=== PATIENT | female | born 1955 | race Caucasian/White ===

== ENCOUNTER → 2017-07-29 | Outpatient (CLI) | payer OTHER ==
[~2017-07-29] MED LIST: CYMBALTA30 MG PO; GRALISE1 EACH PO; GRALISE300 MG PO; GRALISE600 MG PO; IBUPROFEN 800800 M1 PO; LOSARTAN PO; NEURONTIN 300300 M1; SYNTHROID50 MCG PO; TRAMADOL 50 MG50 MG PO; TYLENOL EXTRA500 MG PO; TYLENOL325 MG PO; estradiol PO
--- NOTE | 2017-08-17 08:16 | PAINCON ---
[address] [address] PAIN MANAGEMENT CONSULTATION Name: GALLEGOSZION S Room: [facility]#: [id number] Admission: 07/29/17 Attend Phys: Afua Marie MD Discharge: Date of : 51 Report #: [id number] THIS REPORT FOR: //name// CC: Zion Hsu DATE OF SERVICE: 07/29/2017 CHIEF COMPLAINT: Low back pain down into the hips and feet. HISTORY OF PRESENT ILLNESS: The patient is a 62-year-old female who has been referred to the pain clinic for evaluation of back, hip and foot pain. The patient has been told that she has arthritis, which is problematic in her back and hips. She also has noted some arthritis in her feet with some foot stiffness. She has been using gabapentin. Cymbalta caused some mental cloudiness. Rates her pain as a 4/10. She has been having pain in her feet since the and back pain since the . Pain is made worse when she is standing and that exacerbates her back pain. Walking worsens the pain that she notes in her feet. She notes that sitting is beneficial. Describes as continuous, steady, constant, burning on the top of her big toe and around the cuticle as well as some aching in the back area, throbbing in her feet. Back pain is judged at 4/10. Foot pain is judged as 4/10. Both can rise to the level of 9 when the pain is really problematic. She has used tramadol in the past. She has used ibuprofen p.r.n. She has had an MRI that revealed mild left-sided epidural stenosis at L5-S1. ALLERGIES: No known drug allergies. MEDICATIONS: Tylenol Extra Strength 500 mg 2 tablets every 4-6 hours p.r.n., Cymbalta 30 mg daily, gabapentin/Gralise, ibuprofen 800 mg q. 6 hours p.r.n., Levothyroxine 50 mcg, tramadol 50 mg t.i.d., estradiol 0.5 mg, and losartan 100 mg. Medications used in the past are nortriptyline 10 mg nightly for fibromyalgia. Fenofibrate in the past for hypercholesterolemia. PAST MEDICAL HISTORY: Gallbladder disease, thyroid disease, joint disease/arthritis, B12 deficiency, fibromyalgia, hypertension, and hypothyroidism. PAST SURGICAL HISTORY: Appendectomy 1966, breast surgery implant, cholecystectomy 1980, colonoscopy 2007, hysterectomy with bilateral salpingo-oophorectomy 1982, ruptured appendix, breast augmentation in 1980, laparotomy 1974, seizure 2004, and 2 concussions approximately 1997. 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 She is working part-time at this juncture. 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 [address] PAIN MANAGEMENT CONSULTATION Name: GALLEGOSZION YEAGER Room: [facility]#: [id number] Admission: 07/29/17 Attend Phys: Afua Marie MD Discharge: Date of : 51 Report #: [id number] FAMILY HISTORY: Mother with Sjogren's syndrome, arthritis, fibromyalgia. Brother HIV. Sister arthritis. Mother is alive. Father at age 23. Sister is alive. Brother . REVIEW OF SYSTEMS: Twelve point generally good health, fatigue, weakness, macular degeneration, wears glasses, palpitations, shortness of breath, swelling of hands and feet, joint pain, joint stiffness, weakness of muscles and joints, muscle pain and cramps, back pain, difficulty walking, seizure. LABORATORY DATA: MRI of the lumbar spine dated 11/07/2015 reveals: 1. L3-L4, foramen intact, mild disk bulging. 2. L4-L5 foramen intact, mild disk bulging. Degenerative hypertrophic facet changes and ligamentum hypertrophy are present. No significant canal narrowing. 3. L5-S1 mild epidural lipomatosis. Moderate degenerative facet changes. Mildly narrowing of the canal, but does not produce stenosis. SI joint appears intact. PAIN CLINIC ASSESSMENT: 1. The patient has some problems with her feet and hand with her feet arthritic changes. 2. Height 5 feet 7 inches, weight 225 pounds, BMI is 35.7. 3. Vital signs: Blood pressure 135/85, heart rate 72, respiratory rate 16, room air saturation 95%, temperature 97.4. Pain score 4/10. 4. Fall risk. The patient has not fallen in the last 3 months. 5. The patient is not on the blood thinner. 6. History of hypertension. The patient is being treated for hypertension. 7. Risk assessment tool. 8. Functional assessment tool. 9. Recreational drug use. The patient denies recreational drug use. 10. Tobacco: Again, the patient denies use of tobacco. The patient denies use of alcoholic beverages. PHYSICAL EXAMINATION: GENERAL: The patient is a well-developed female. She appears her stated age. She is alert and oriented x 3. Affect is appropriate. Speech is fluent. HEENT: Normocephalic, atraumatic. Extraocular eye muscles intact. Mucous membranes moist. Conjunctivae nonicteric. Hearing is within normal limits. NECK: Without adenopathy or bruits. HEART: Regular rate and rhythm. Normal heart sounds without gallop or rub. PULMONARY: Clear to auscultation with normal breath sounds. ABDOMEN: Nontender without organomegaly. BACK: Without significant kyphosis, scoliosis or lordosis. MUSCULOSKELETAL: Upper extremity muscle strength is judged to be 5/5 for the major muscle groups in the upper extremity with some symmetry. Deep tendon reflex +1 for the biceps, difficult to appreciate the triceps and brachioradialis. 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 Forward bending to about [address] [place] [address] PAIN MANAGEMENT CONSULTATION Name: ZION GALLEGOS Room: [facility]#: [id number] Admission: 07/29/17 Attend Phys: Afua Marie MD Discharge: Date of : 51 Report #: [id number] Major muscle groups of the lower extremity is judged to be 5/5 for the major muscle groups with symmetry. The patient has pain and discomfort on the top of the great toe and some discomfort around the cuticle on her left and right foot. She also has some pain and discomfort in the L5 paraspinous muscles as well as some pain that radiates down, but some burning and stabbing sensation in the gluteus aldo areas bilaterally. She has some stabbing pain in her right hand. IMPRESSION: 1. Chronic pain in the low back area. 2. Fibromyalgia. 3. Fatigue. 4. Hypertension. 5. Hypothyroidism. 6. Hyperlipidemia. 7. Vitamin D and B12 deficiency. RECOMMENDATIONS: We discussed treatment options with the patient. At this juncture, she continues to have pain, which is quite problematic. It involves her foot as well as some low back pain and history of fibromyalgia. At this juncture, we will try gabapentin type medication and it is called Grali. She has been given a sample of this medication. She will take it as prescribed in the sample. It will slowly be titrated up to a possible 1800 mg. This medication is the one that lot for folks are able to take because of gentleness of this. When they have not been able to titrate gabapentin, this medication has been helpful for some. I think it would be reasonable for us to give it a try. She will try this medication and call us if she has any problems. We will then evaluate what other options are available. A sample pack for 15 days of medication has been provided. We would like to thank you for letting us participate in her care. We hope she continues to improve. <ELECTRONICALLY SIGNED> By: Afua Marie MD 08/17/17 0816 1244 2003N. En Marie MD /[facility]
== END ==
LOC: M.PC 02:23
DX: I10 Essential (primary) hypertension (principal); E78.5 Hyperlipidemia, unspecified; E03.9 Hypothyroidism, unspecified; M79.7 Fibromyalgia; E53.8 Deficiency of other specified B group vitamins; E55.9 Vitamin D deficiency, unspecified; R53.83 Other fatigue

== ENCOUNTER → 2017-08-12 | Outpatient (CLI) | payer OTHER ==
--- NOTE | 2017-08-17 08:16 | PAINCON ---
[facility] [address] [place] [address] PAIN MANAGEMENT CONSULTATION Name: ZION GALLEGOS Room: [facility].#: [id number] Admission: 08/12/17 Attend Phys: Afua Marie MD Discharge: Date of : 51 Report #: [id number] THIS REPORT FOR: //name// CC: ZION MCBRIDE DO Zion Marie DATE OF SERVICE: 08/12/2017 FOLLOWUP COMPLAINT: "The pain in my foot has improved significantly. FOLLOWUP HISTORY: The patient is a 62-year-old female, who has been seen in the pain clinic because of low back pain as well as pain in her feet. She was given a Gralise/gabapentin script at the last visit. She finds that this medication has been quite helpful. This causing no mental confusion. Overall, she notes that her pain in her feet has improved greater than about 70%. She is able to walk with less pain and discomfort. Has less discomfort with activities of daily living. She still has pain and discomfort in her back. She rates it as a 6/10. She feels that the decrease of tramadol has worsened her pain and discomfort. She feels that 2 tramadol tablets t.i.d. has been quite efficacious in helping with the back pain and would like to resume its use. She also finds that her mood has improved with the start of Cymbalta. Overall, things are going better. She would like to continue titrating the Gralise medication to the higher level to note its efficacy and back pain as well as hope for continued pain in her feet. ALLERGIES: No known drug allergies. MEDICATIONS: Tylenol Extra Strength 500 mg 2 tablets every 4 hours p.r.n., Cymbalta 30 mg daily, gabapentin/Gralise starting 1800 mg daily, ibuprofen 800 mg every 6 hours p.r.n., levothyroxine 50 mcg, tramadol 50 mg t.i.d., estradiol 0.5 mg and losartan 100 mg. Nortriptyline use in the past nightly for fibromyalgia. Fenofibrate in the past for hypercholesterolemia. PAIN CLINIC ASSESSMENT: 1. The patient has some arthritic changes in her feet. 2. Height 5 feet 7 inches, weight 227 pounds, BMI is 37. 3. VITAL SIGNS: Blood pressure 140/75, pulse is 80, respiratory rate 16, room air saturation is 94%, temperature 98 degrees. 4. Pain intensity 6/10, 70% improvement in foot pain. 5. Fall risk. The patient has not fallen in the last 3 months. 6. Blood thinner. The patient is not on a blood thinner. 7. History of hypertension. The patient is being treated for hypertension. 8. Opioids greater than 6 weeks. The patient is not on opioid, but is taking tramadol. 9. [place] [address] PAIN MANAGEMENT CONSULTATION Name: ZION GALLEGOS Room: [facility]#: [id number] Admission: 08/12/17 Attend Phys: Afua Marie MD Discharge: Date of : 53 Report #: [id number] 10. Risk assessment tool. 11. Recreational drug use. The patient denies use of recreational drugs. 12. Tobacco, the patient denies use of tobacco. 13. Alcohol. The patient denies use of alcohol. PHYSICAL EXAMINATION: GENERAL: The patient is a well-developed white female. She appears her stated age. She is alert and oriented x 3. Her affect is appropriate. Speech is fluent. HEENT: Normocephalic, atraumatic. Extraocular eye muscles intact. Mucous membranes moist, conjunctiva nonicteric. Hearing is within normal limits. NECK: Without adenopathy or bruits. HEART: Regular rate and rhythm. Normal heart sounds without gallop. PULMONARY: Clear to auscultation without rhonchi or wheezing. ABDOMEN: Protuberant. BACK: Without significant kyphosis, scoliosis or lordosis. MUSCULOSKELETAL: Upper extremity strength is judged to be 5/5 for the major muscle groups in the upper extremity with symmetry. Deep tendon reflexes +1 for the biceps. LOWER EXTREMITIES: The patient complains of pain and discomfort in the lower portion of her back with pain that radiates down into the legs in the posterior area bilaterally/muscle strength is judged to be 5/5 for the major muscle groups. FEET: The patient has noted improvement in her feet. Less pain in the great toe. Less discomfort around the area of her cuticles on her right foot. Continues to have some paraspinous muscles soreness with radiation down into the gluteus area bilaterally. IMPRESSION: 1. Chronic pain in the low back. 2. Chronic foot pain. 3. Fibromyalgia. 4. Fatigue. 5. Hypertension. 6. Hypothyroidism. 7. Hyperlipidemia. 8. Vitamin D and B12 deficiency. RECOMMENDATIONS: We discussed treatment options with the patient. She feels that the Gralise has been quite helpful in her pain in her foot. Overall, things are continuing to improve in that area. Still has some pain and discomfort in her back. She is not sure that the Gralise has made a significant inroad into that pain. She feels that the start of the Cymbalta has been helpful. She feels that her mood has lightened. She does not have any problems with mentation. No problems with side effects from her current medical regimen. She feels that tramadol 50 mg 2 tablets t.i.d. [place] [address] PAIN MANAGEMENT CONSULTATION Name: ZION GALLEGOS Room: [facility]#: [id number] Admission: 08/12/17 Attend Phys: Afua Marie MD Discharge: Date of : 51 Report #: [id number] helping her pain control. She would like to continue with these medications. She has asked that we continue to write for medications of Cymbalta, tramadol and the Gralise, which we will. She will call us if she has any problems with her medications. A script for the Gralise 1800 mg per day has been written. We would like to thank you for letting us participate in her care. We hope she continues to improve. <ELECTRONICALLY SIGNED> By: Afua Marie MD 08/17/17 0816 1402 2018N. En Marie MD /nt
== END ==
LOC: M.PC 03:26
DX: M54.5 Low back pain (principal); G89.29 Other chronic pain; M79.671 Pain in right foot; M79.7 Fibromyalgia; R53.83 Other fatigue; I10 Essential (primary) hypertension; E03.9 Hypothyroidism, unspecified; E78.5 Hyperlipidemia, unspecified; E53.0 Riboflavin deficiency; E55.9 Vitamin D deficiency, unspecified

== ENCOUNTER → 2017-09-09 | Outpatient (CLI) | payer OTHER ==
--- NOTE | 2017-10-06 13:42 | PAINCON ---
[address] [address] PAIN MANAGEMENT CONSULTATION Name: ZION GALLEGOS Room: [facility].#: [id number] Admission: 09/09/17 Attend Phys: Afua Marie MD Discharge: Date of : 51 Report #: [id number] THIS REPORT FOR: //name// CC: Zion Hsu DATE OF SERVICE: 09/09/2017 FOLLOWUP COMPLAINT: Low back pain, feels like Gralise/gabapentin is helpful, but it does make me feel a little bit dizzy. FOLLOWUP HISTORY: The patient is a 62-year-old female who has had a history of chronic foot pain. As you recall, she has a significant problem with her feet. She found that the Gralise has been helpful. She does feel that maybe the medication might be causing a little bit of dizziness. She notes that if she takes her medication too early in the evening, she feels some of the effects as well as if she waits until later in the evening she notes some of the effects later on in the following day. She overall feels that this medication is beneficial. She does have some problems with activities of daily living. She would like to go to her grandchildren's baseball games. She finds that she is unable to because of this chronic pain, which she is experiencing. She feels that the tramadol medication is helpful. She feels that Cymbalta is helpful and overall feels that things are about 75% improved with her back and feet on her current medical regimen over no treatment. ALLERGIES: No known drug allergies. MEDICATIONS: Extra strength Tylenol 2 tablets q. 4 hours, Cymbalta 30 mg, gabapentin/Gralise 1800 mg daily, ibuprofen 800 mg q.6 hours, levothyroxine 50 mcg, tramadol 50 mcg t.i.d., estradiol 0.5 mg, losartan 100 mg, nortriptyline has been used in the past for fibromyalgia, and fenofibrate in the past for hypercholesterolemia pain clinic. PAIN CLINIC ASSESSMENT: 1. The patient has some arthritic changes in her feet. 2. Pain intensity is 5/10 with about 75% improvement overall. 3. Fall risk. The patient has not fallen in the last 3 months. 4. Blood thinner. The patient is not on a blood thinner. 5. History of hypertension. The patient is being treated for hypertension. 6. Opioids greater than 6 weeks. The patient is not on opioid therapy greater than 6 weeks. She does take tramadol. 7. Functional assessment tool. 8. Risk assessment tool. 9. Recreational drug use. The patient denies use of recreational drugs. 10. Tobacco: The patient [place] [address] PAIN MANAGEMENT CONSULTATION Name: ZION GALLEGOS Room: [facility]#: [id number] Admission: 09/09/17 Attend Phys: Afua Marie MD Discharge: Date of : 51 Report #: [id number] 11. Alcohol. The patient denies use of alcoholic beverages. PHYSICAL EXAMINATION: VITAL SIGNS: Blood pressure 138/85, heart rate 80, respiratory rate 16, room air saturation 95%, and temperature 98.5. GENERAL: The patient is a well-developed white female, appears her stated age. She is alert and oriented x 3. She has an appropriate affect. Her speech is fluent. Height 5 feet 7 inches, weight 223 pounds, and BMI is 34.9. HEENT: Normocephalic, atraumatic. Extraocular eye muscles intact. Mucous membranes are moist. Sclerae nonicteric. Hearing is within normal limits. NECK: Without adenopathy or bruits. PULMONARY: Clear to auscultation without rales, rhonchi, or wheezing. ABDOMEN: Protuberant. BACK: Without significant kyphosis, scoliosis, or lordosis. MUSCULOSKELETAL: Muscle strength is judged to be 5/5 for the major upper muscle groups with +1 reflexes for the biceps. Lower extremity examination, complains of some pain and discomfort in lower portion of her back, which radiates down into her legs in the posterior muscles and bilaterally. Muscle straight judged to be 5/5. Feet, the patient notes some improvement in her feet. Feels that there is less pain in the great toe. She has pain and discomfort under her cuticles on the right foot. Continues to have some paraspinous muscle soreness radiating down into the gluteus aldo bilaterally. IMPRESSION: 1. Chronic pain in the lower back. 2. Chronic foot pain, improved with release. 3. Fibromyalgia. 4. Fatigue. 5. Hypertension. 6. Hypothyroidism. 7. Hyperlipidemia. 8. Vitamin D and vitamin B12. RECOMMENDATIONS: We discussed the treatment options with the patient. She feels overall that things have improved with the Gralise. She is about 75% improvement in her pain overall with her current medical regimen. Does feel that if she takes her Gralise too her early that she gets a little bit sleepy in the evening or if she takes it too late in the evening she becomes a little bit more sleepy, somewhat less clear headed in the a.m. We recommend that she will decrease the amount of Gralise by 300 mg, she will take 600, 600, and a script for 300 mg tablets has been written. She will call us if she has any problems with her medications. Hopefully, this change in medication will help improve her effects of p.m. or a.m. Symptomatology, from which she perceives the Gralise. She will also continue with tramadol 50 [place] [address] PAIN MANAGEMENT CONSULTATION Name: ZION GALLEGOS Room: [facility]#: [id number] Admission: 09/09/17 Attend Phys: Afua Marie MD Discharge: Date of : 51 Report #: [id number] We would like to thank you for letting us to participate in her care. We hope she continues to improve. <ELECTRONICALLY SIGNED> By: Afua Marie MD 10/06/17 1342 0949 [id number] Marie MD /[facility]
== END ==
LOC: M.PC 04:03
DX: M54.5 Low back pain (principal); I10 Essential (primary) hypertension; E03.9 Hypothyroidism, unspecified; E78.5 Hyperlipidemia, unspecified; G89.29 Other chronic pain; M79.671 Pain in right foot; M79.7 Fibromyalgia; R53.83 Other fatigue

== ENCOUNTER → 2017-10-12 | Outpatient (CLI) | payer OTHER ==
--- NOTE | 2017-10-21 15:18 | PAINCON ---
[address] [address] PAIN MANAGEMENT CONSULTATION Name: ZION GALLEGOS Room: [facility].#: [id number] Admission: 10/12/17 Attend Phys: Afua Marie MD Discharge: Date of : 51 Report #: [id number] THIS REPORT FOR: //name// CC: Zion Marie DATE OF SERVICE: 10/12/2017 FOLLOWUP COMPLAINT: "Here for medication renewal. Things are going reasonably well." FOLLOWUP HISTORY: The patient is a 62-year-old female who has been followed in the Pain Clinic because of problems with her feet. At this juncture, she feels that her current medication regimen is working reasonably well. She finds that Gralise (gabapentin) continues to be helpful. She finds Cymbalta efficacious as well. She finds that tramadol helps with the pain control as well. She has returned today for renewal of her medications. Feels that things are going reasonably well. She does not have any problems with her sensorium with use of her medications. Does have some low back discomfort. She would like to continue with her medications. She would like to have them on a 90-day basis. Notes that pain medications are helpful with activities of daily living, walking, standing and bending. Notes that her pain sometimes improves as well with rest. Has had no untoward reaction from the medication and would like to continue its use. ALLERGIES: No known drug allergies. MEDICATIONS: Extra strength Tylenol 2 tablets q.4 hours, Cymbalta 30 mg, gabapentin/Gralise 1800 mg daily, ibuprofen 800 mg q.6 hours, levothyroxine 50 mcg, tramadol 50 mg t.i.d., estradiol 0.5 mg, losartan 100 mg, nortriptyline has been used in the past for fibromyalgia, and fenofibrate in the past for hypercholesterolemia. PAIN CLINIC ASSESSMENT: 1. The patient has some arthritic changes in her feet. 2. Height 5 feet 7 inches, weight 222 pounds, BMI 35.9. 3. VITAL SIGNS: Blood pressure 154/93, heart rate 72, respiratory rate 16, room air saturation 95%, and temperature 98.1. 4. Pain intensity judged to be 3/10. 5. Fall risk. The patient has not fallen in the last 3 months. 6. The patient is not on a blood thinning medication. 7. Hypertension. The patient is being treated for hypertension. 8. Opioids greater than 6 weeks. The patient does receive tramadol from one source, the Pain Clinic. 9. Functional assessment stool. 10. Risk [place] [address] PAIN MANAGEMENT CONSULTATION Name: GALLEGOSZION Room: [facility]#: [id number] Admission: 10/12/17 Attend Phys: Afua Marie MD Discharge: Date of : 51 Report #: [id number] 11. Recreational drug use. The patient denies use of recreational drugs. 12. Tobacco: The patient denies use of tobacco. 13. Alcoholic beverages. The patient denies use of alcoholic beverages. PHYSICAL EXAMINATION: GENERAL: The patient is a well-developed, well-nourished white female, appears her stated age. She is alert and oriented x 3. She is appropriate with her affect. Her speech is fluent. HEENT: Normocephalic, atraumatic. Extraocular eye muscles intact. Mucous membranes are moist. Sclerae nonicteric. Hearing within normal limits. NECK: Without adenopathy or bruits. PULMONARY: Lungs clear to auscultation without rales. HEART: Regular rate. S1, S2. ABDOMEN: Nontender. BACK: Without significant kyphosis, scoliosis or lordosis. MUSCULOSKELETAL: Strength in the upper extremity judged to be 5/5 for the major muscle groups in the upper extremities, lower back 5/5. The patient does have some pain and discomfort in her lower back, which radiates down into her legs in the posterior muscles bilaterally. The patient does note some pain and discomfort in her feet as well. IMPRESSION: 1. Chronic pain in lower back. 2. Chronic foot pain improved with the Gralise. 3. Fibromyalgia. 4. Fatigue. 5. Hypertension. 6. Hypothyroidism. 7. Hyperlipidemia. 8. Vitamin D and vitamin B12. RECOMMENDATIONS: We discussed treatment options with the patient. Overall, she feels that things are going reasonably well. We will continue with her current medications. She would like to get 90 days prescription of her medications from her pharmacy. We will write her medications as such. She is having no complications. She will follow up in the future as needed. She will call us if she has any problems with the medication or concerns. We would like to thank you for letting us participate in her care. We hope she continues to improve. <ELECTRONICALLY SIGNED> By: Afua Marie MD 10/21/17 1518 1023 [id number]. En Marie MD /nt
== END ==
LOC: M.PC 02:47
DX: I10 Essential (primary) hypertension (principal); E03.9 Hypothyroidism, unspecified; E78.5 Hyperlipidemia, unspecified; M79.672 Pain in left foot; G89.29 Other chronic pain; M54.5 Low back pain; M79.7 Fibromyalgia; R53.83 Other fatigue; E55.9 Vitamin D deficiency, unspecified; E53.8 Deficiency of other specified B group vitamins; Z79.899 Other long term (current) drug therapy

== ENCOUNTER → 2017-12-21 | Outpatient (CLI) | payer OTHER ==
--- NOTE | 2017-12-22 16:42 | PAINCON ---
[address] [address] PAIN MANAGEMENT CONSULTATION Name: ZION GALLEGOS Room: [facility].#: [id number] Admission: 12/21/17 Attend Phys: Afua Marie MD Discharge: Date of : 51 Report #: [id number] THIS REPORT FOR: //name// CC: Zion Marie DATE OF SERVICE: 12/21/2017 FOLLOWUP COMPLAINT: Worsening of pain. There has been a lot of family events ongoing. FOLLOWUP HISTORY: The patient is a 62-year-old female who has been seen and followed in the Pain Clinic because of chronic pain involving her feet. She feels that her medications continue to be helpful. She has noticed a worsening of her pain at this juncture. There have been quite a number of stressful factors in her family life. Her epnfmxn-gf-ibf has had am [place], mother has had a heart attack. Family members had a baby who was premature, feasible and she has been required to help out. States that her family lives on about [address]. They have a number of animals. This has been quite a physical feat. She has been experiencing more pain in the upper portion of her back. Her stress level continues to be quite high. Rates her pain as a 4/10. Feels that the Cymbalta and Gralise medications are helpful. Would like to have her medications renewed. ALLERGIES: No known drug allergies. MEDICATIONS: Extra strength Tylenol 2 tablets q. 4 hours, Cymbalta 30 mg/gabapentin, Gralise 1800 mg daily dose, ibuprofen 800 mg q.6 hours, levothyroxine 50 mcg, tramadol 50 mg t.i.d., estradiol 0.5 mg, losartan 100 mg, nortriptyline. The patient has used this in the past for fibromyalgia, fenofibrate in the past for elevated cholesterol. PAIN CLINIC ASSESSMENT: 1. The patient has some arthritic changes in her feet. 2. Height 5 feet 3 inches, weight 220 pounds, BMI 34.4. 3. Vital signs: Blood pressure 145/93, heart rate 81, respiratory rate 16, room air saturation 94%, temperature 98.5. 4. Pain intensity 08/03. 5. Fall risk. The patient has not fallen in the last 3 months. 6. Blood thinner. The patient is not on a blood thinning medication. 7. Hypertension. The patient is being treated for hypertension. 8. Opioid therapy greater than 6 weeks. The patient is not receiving opioid but is receiving tramadol. 9. Functional assessment tool. 10. Recreational drug use. The patient denies use of recreational drugs. 11. Tobacco: The patient [place] [address] PAIN MANAGEMENT CONSULTATION Name: ZION GALLEGOS Room: [facility]#: [id number] Admission: 12/21/17 Attend Phys: Afua Marie MD Discharge: Date of : 51 Report #: [id number] 12. Alcohol: The patient denies use of alcoholic beverages. PHYSICAL EXAMINATION: GENERAL: The patient is a well-developed, well-nourished white female. Appears her stated age. She is alert and oriented x 3. Her affect is appropriate. Speech is fluent. HEENT: Normocephalic, atraumatic. Extraocular eye muscles intact. Mucous membranes are moist. Sclerae nonicteric. Hearing is within normal limits. NECK: Without adenopathy or bruits. PULMONARY: Lungs clear to auscultation without rales. HEART: Regular rate. S1, S2. ABDOMEN: Nontender. BACK: Without significant kyphosis, scoliosis or lordosis. MUSCULOSKELETAL: Strength in the upper extremity is judged to be 5/5 for the major muscle groups without problems. The symmetry of the muscles is noted. Lower extremity back muscles, judged to be 5/5. The patient does have some pain and discomfort that radiates down into her legs in the posterior muscles bilaterally. The patient has pain in her feet. IMPRESSION: 1. Chronic pain in lower back. 2. Chronic foot pain improved with the use of Gralise. 3. Fibromyalgia. 4. Fatigue. 5. Hypothyroidism. 6. Hyperlipidemia. 7. Vitamin D and vitamin B12. RECOMMENDATIONS: We discussed treatment options with the patient. At this juncture, we will increase the patient's tramadol to 2 tablets q.i.d. from 2 tablets t.i.d. The patient will also increase her Gralise. She will increase it by 300 mg initially and if she finds that she is able to tolerate this, she will increase it to 2400 which is four 600 mg tablets daily. She will call us if she has any concerns. We would like to thank you for letting us participate in her care. We hope she continues to improve. <ELECTRONICALLY SIGNED> By: Afua Marie MD 12/22/17 1642 [id number]. En Marie MD /nt
== END ==
LOC: M.PC 04:25
DX: M54.5 Low back pain (principal); G89.29 Other chronic pain; M25.579 Pain in unspecified ankle and joints of unspecified foot; R53.83 Other fatigue; E03.9 Hypothyroidism, unspecified; E78.5 Hyperlipidemia, unspecified; E55.9 Vitamin D deficiency, unspecified; E53.8 Deficiency of other specified B group vitamins

== ENCOUNTER → 2018-03-31 | Outpatient (CLI) | payer MEDICARE, OTHER ==
[~2018-03-31] MED LIST changes: +AMITRIPTYLINE H10 M3 PO; +DIURETIC; +FENOFIBRATE130 MG PO; +MEDROLDOSEPACK PO; +VIT D
--- NOTE | 2018-04-01 17:20 | PAINCON ---
[address] [address] PAIN MANAGEMENT CONSULTATION Name: ZION GALLEGOS Room: [facility].#: [id number] Admission: 03/31/18 Attend Phys: Afua Marie MD Discharge: Date of : 51 Report #: [id number] THIS REPORT FOR: //name// CC: Zion Marie DATE OF SERVICE: 03/31/2018 FOLLOWUP: I have noticed some pain in my right arm and has been sore for about 2 weeks. HISTORY: The patient is a 62-year-old female who has been followed in the pain clinic because of chronic pain involving her feet. She finds that her medications of tramadol and Cymbalta to be helpful with the foot pain. She has noted some different pain, which she rates as 8/10 depending on time of day. She noticed pain and discomfort in her arm about Thanksgiving. This involves the left arm. Pain was quite problematic. Start some cramping sensation after a couple of days that pain resolved. She then started to have a similar pain on the right side with pain in her shoulder or pain in her right arm below the elbow down into her hands. Describes it as a sore, aching pain and it feels as though her arm/elbow in certain areas are on fire. Actually it feels as though it is "smoldering" like fire smoldering. It involves her bicep area. She feels that she does have tendonitis. Given that the pain has continued for the last 2 weeks. She finds that it has been quite uncomfortable and directly impacted her ability to engage in activities of daily living. Notes that activities such as walking, sitting, standing, lifting and bending are problematic at this juncture. ALLERGIES: No known drug allergies. MEDICATIONS: Extra strength Tylenol 2 tablets q. 4 hours, Cymbalta 30 mg/gabapentin, Gralise 1800 mg dose, ibuprofen 800 mg, levothyroxine 50 mcg, tramadol 50 mg, estradiol 0.5 mg, losartan 100 mg, nortriptyline, fenofibrate for elevated cholesterol. PAIN CLINIC ASSESSMENT/PQRS: 1. The patient has some arthritic changes in her feet. She is not being treated for rheumatoid arthritis. 2. Height 5 feet 7 inches, weight 222 pounds, BMI is 34. 3. Blood pressure 139/98, heart rate 79, respiratory rate 16, room air saturation 95%, temperature 98.6. 4. Pain intensity 8/10. 5. Fall history: The patient has not fallen in the last 3 months. 6. Blood thinner patient is not on daughter, her blood thinning medication. 7. Hypertension. The patient is being treated for hypertension. 8. Opioids: Opioids greater than 6 weeks. [place] [address] PAIN MANAGEMENT CONSULTATION Name: ZION GALLEGOS Room: [facility]#: [id number] Admission: 03/31/18 Attend Phys: Afua Marie MD Discharge: Date of : 51 Report #: [id number] opioid, but is taking tramadol. 9. Functional assessment tool. 10. Recreational drug use. The patient denies use of recreational drugs. 11. Tobacco: The patient denies use of tobacco or alcohol. The patient denies use of alcoholic beverages. PHYSICAL EXAMINATION: GENERAL: The patient is a well-developed, well-nourished white female. Appears her stated age. She is alert and oriented x 3. Her affect is appropriate. Speech is fluent. She seems concerned about the chronic and unrelenting pain in her right shoulder. Right forearm area. HEENT: Normocephalic, atraumatic. Extraocular eye muscles intact. Sclerae nonicteric. Mucous membranes are moist. NECK: Without adenopathy or JVD. LUNGS: Clear to auscultation without rales. HEART: Regular rate. ABDOMEN: Nontender. BACK: Without significant scoliosis, kyphosis or lordosis. Upper extremity muscle strength is judged to be 4-on the right side because of pain and discomfort 5/5 for the left side. The patient has pain and discomfort in the left medial epicondyle area. Has some pain and discomfort in the area of the lateral condyle area. Sits and rubs her arms on the right side with her left arm. Has a pain look on her face while she is rubbing the affected area. Complains of some cramping in the right hand. States that there is a feeling as though it is "gone to sleep on the right side." Lower extremity muscle strength is judged to be 5/5 for the major muscle groups. IMPRESSION: 1. Chronic lower back pain. 2. Chronic foot pain involves, improved with use of Gralise. 3. New onset of right arm/forearm pain with cramping and some sensations of numbness in the hand. The patient has noted some changes in her fingers, which she feels might be the arthritic changes. 4. Fatigue. 5. Hypothyroidism. 6. Hyperlipidemia. 7. Vitamin D and vitamin B12 use. RECOMMENDATIONS: We discussed treatment options with the patient. At this juncture, she has pain and discomfort involving her arms. She is not having significant pain radiating down from her neck, but does have pain around the right elbow area. The patient in the area of the medial nerve indicates that there is some soreness in this area. The patient complains of pain and discomfort in the muscles of the arm with flexion and extension. Feels that there is a numbing sensation involving certain portions [place] [address] PAIN MANAGEMENT CONSULTATION Name: ELZION Perez Room: [facility]#: [id number] Admission: 03/31/18 Attend Phys: Afua Marie MD Discharge: Date of : 51 Report #: [id number] RECOMMENDATION: A script for her medications of tramadol and amitriptyline have been rewritten. The patient will try a Medrol Dosepak and note its efficacy with this anti-inflammatory properties. She will also try Elavil at bedtime. This medication has sometimes been helpful when the patient does have nerve pain as well as hopefully this will be somewhat helpful and enabling her to get a better night sleep. She will call us if she has any concerns. If her pain continues to be problematic. Possibility of a cervical epidural steroid injection or other injection remained. We would like to thank you for letting us participate in her care. We hope she continues to improve. <ELECTRONICALLY SIGNED> By: Afua Marie MD 04/01/18 1720 [id number]. En Marie MD /nt
== END ==
LOC: M.PC 04:41
DX: M54.5 Low back pain (principal); G89.29 Other chronic pain; M79.601 Pain in right arm; R53.83 Other fatigue; R20.0 Anesthesia of skin; M79.671 Pain in right foot; E03.9 Hypothyroidism, unspecified; I10 Essential (primary) hypertension; E53.9 Vitamin B deficiency, unspecified; E55.9 Vitamin D deficiency, unspecified

== ENCOUNTER → 2018-04-14 | Outpatient (CLI) | payer MEDICARE, OTHER ==
--- NOTE | ~2018-04-14 | PAINCON ---
[address] [address] PAIN MANAGEMENT CONSULTATION Name: ZION GALLEGOS Room: [facility]#: [id number] Admission: 04/14/18 Attend Phys: Afua Marie MD Discharge: Date of : 51 Report #: [id number] THIS REPORT FOR: //name// CC: Zion Marie DATE OF SERVICE: 04/14/2018 FOLLOWUP/CHIEF COMPLAINT: Noticed more numbness in my right arm with weakness down in my hand with tingling in my fingers. HISTORY: The patient is a 63-year-old female who has been followed in the pain clinic. She has complex medical problem involving her feet. Also, has been having some problems with her neck and head pain, which has radiated down into her right arm. She was given a Medrol Dosepak. She noticed that with Medrol Dosepak and her other medications of tramadol and Cymbalta, her pain pretty much was alleviated. She has now stopped taking the medication. She has noted a recurrence of pain and discomfort. It involves her right arm with pain radiating down the forearm into the middle fingers. At this juncture, she has noticed some weakness in her hands. She is here to see what options are available. ALLERGIES: No known drug allergies. CURRENT MEDICATIONS: Extra strength Tylenol 2 tablets q. 4 hours, Cymbalta 30 mg/gabapentin, Gralise 1800 mg dosing, ibuprofen 800 mg, levothyroxine 50 mcg, tramadol 50 mg, estradiol 0.5 mg, losartan 100 mg, nortriptyline, fenofibrate for elevated cholesterol. PAIN CLINIC ASSESSMENT/PQRS: 1. The patient has some arthritic changes in her feet. She is not being treated for rheumatoid arthritis. She has noted some pain radiating down into her right arm. Height 5 feet 7 inches, weight 222 pounds, BMI is 35. 2. Vital signs: Blood pressure 131/94, heart rate 74, respiratory rate 16, room air saturation 96%, and temperature 97.6. 3. Pain score 7/10. 4. Blood thinner. The patient is not on blood thinning medication. 5. Fall history: The patient has not fallen in the last 3 months. 6. Hypertension. The patient is not being treated for hypertension. 7. Opioid greater than 6 weeks. The patient is using tramadol. 8. Functional assessment tool, low for opioid use. 9. Recreational drug use. The patient denies use of recreational drugs. 10. Tobacco: The patient denies use of alcoholic beverages. 11. Alcohol: The patient denies use of alcoholic beverages. PHYSICAL EXAMINATION: [place] [address] PAIN MANAGEMENT CONSULTATION Name: ZION GALLEGOS Room: [facility]#: [id number] Admission: 04/14/18 Attend Phys: Afua Marie MD Discharge: Date of : 51 Report #: [id number] GENERAL: The patient is a well-developed, well-nourished white female. Appears her stated age. She is alert and oriented x 3. Affect is appropriate. Speech is fluent. HEENT: Normocephalic, atraumatic. Extraocular eye muscles intact. Sclerae nonicteric. Mucous membranes are moist. NECK: Without adenopathy or JVD. The patient has some pain and discomfort in the right shoulder with pain that is radiating down and most discomfort in the forearm down into the posterior portion of her hand and down into her hands where her fingers are numb. 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 BACK: Without significant scoliosis, kyphosis or lordosis. The patient has noted some improvement in her feet. States that with her use of her current medication regimen of tramadol, Elavil, gabapentin, Cymbalta and with the Medrol Dosepak, she was able to shop for about 9 hours without worsening of her pain. ASSESSMENT: 1. Chronic pain involving the right arm with pain radiating down into her fingers with numbness and tingling on the right side -- cervical radicular pain. 2. Chronic foot pain involved, which has improved with the use of Gralise. 3. New onset of right forearm pain with cramping sensation of numbness in the hand and fingers. 4. Fatigue. 5. Hypothyroidism. 6. Hyperlipidemia. 7. Vitamin D and vitamin B12 use. RECOMMENDATIONS: We discussed treatment options with the patient. At this juncture, she would like to continue on a conservative approach. We are now in the holiday. The Pain Clinic will be closed for the next 2 weeks. She would like to try a Medrol Dosepak. She would also like a second Medrol Dosepak in the event that she has pain, which is quite problematic on the second week of her vacation, she would have some option to help with her pain control. I think this is a reasonable thing to do at this point. If her pain continues to be problematic, we will proceed with a cervical epidural steroid injection in the future. Risks and benefits of the procedure were discussed with the patient. Therefore, she will wait until we are opened again, on 04/28/2018. We would like to thank you for letting us participate in her care. We hope she continues to improve. A script for, 2 Medrol Dosepak have been written. The patient also has been given a script for her medications of amitriptyline, which she will continue, Cymbalta 30 mg and gabapentin. We would like to thank you for letting us participate in her care. We hope she continues to improve. A cervical epidural steroid injection is necessary in the future. We will proceed. By: [id number]. En Marie MD /nt
== END ==
LOC: M.PC 01:41
DX: M54.12 Radiculopathy, cervical region (principal); M79.601 Pain in right arm; R20.0 Anesthesia of skin; M79.631 Pain in right forearm; E03.9 Hypothyroidism, unspecified; E78.5 Hyperlipidemia, unspecified; D51.0 Vitamin B12 deficiency anemia due to intrinsic factor deficiency; R53.82 Chronic fatigue, unspecified

== ENCOUNTER → 2018-05-12 | Outpatient (CLI) | payer MEDICARE, OTHER ==
[~2018-05-12] MED LIST changes: +VOLTAREN GEL 1100 G2 TOP
--- NOTE | ~2018-05-12 | PAINCON ---
[address] [address] PAIN MANAGEMENT CONSULTATION Name: ZION GALLEGOS Room: [facility].#: [id number] Admission: 05/12/18 Attend Phys: Afua Marie MD Discharge: Date of : 51 Report #: [id number] THIS REPORT FOR: //name// CC: Zion Marie DATE OF SERVICE: 05/12/2018 CHIEF COMPLAINT: Here for medication renewal. HISTORY: The patient is a 63-year-old female who has been followed in the pain clinic. As you recall, she has a number of painful areas. One involves her feet. She has also had some problems with pain in her neck and right elbow tendinitis. She has noted some swelling in her left hand. She has had some frequent cramping in her arm. Rates her pain overall as a 4/10. Feels that the amitriptyline and tramadol have been beneficial. Feels overall that things are about 50% improved with use of these medications. ALLERGIES: No known drug allergies. CURRENT MEDICATIONS: Extra strength Tylenol 2 tablets q. 4 hours p.r.n., Cymbalta 30 mg/gabapentin, Gralise 1800 mg dosing, ibuprofen 800 mg, levothyroxine 50 mcg, tramadol 50 mg, estradiol 0.5 mg, losartan 100 mg, nortriptyline, fenofibrate for elevated cholesterol. PAIN CLINIC ASSESSMENT AND PQRS: 1. The patient has some arthritic changes in her feet. She is not being treated for rheumatoid arthritis. The patient has been experiencing some pain radiating down into her right arm. 2. Height 5 feet 7 inches, weight 222 pounds, BMI is 34. 3. Blood pressure 153/89, heart rate 78, respiratory rate 16, room air saturation 95%, temperature 97.7. 4. Pain intensity 4/10. 5. Fall history: The patient has not fallen in the last 3 months. 6. Hypertension. The patient has not been treated for hypertension. 7. Opioids greater than 6 weeks. The patient is using tramadol. 8. Functional assessment tool, low for opioid use. 9. Recreational drug use. The patient denies use of recreational drugs. 10. Tobacco: The patient denies use of alcoholic beverages. 11. Tobacco: The patient denies use of tobacco. PHYSICAL EXAMINATION: GENERAL: The patient is a well-developed, well-nourished white female. Appears her stated age. She is alert and oriented x 3. Her affect is appropriate. Speech is fluent. HEENT: Normocephalic, atraumatic. Extraocular eye muscles intact[place] [address] PAIN MANAGEMENT CONSULTATION Name: GALLEGOSZION Room: [facility]#: [id number] Admission: 05/12/18 Attend Phys: Afua Marie MD Discharge: Date of : 51 Report #: [id number] nonicteric. Mucous membranes are moist. NECK: Without adenopathy or JVD. MUSCULOSKELETAL: The patient has some pain and discomfort with pain radiating down the right shoulder into the forearm and into the posterior portion of her hand. Notes some numbness in her fingers. 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 BACK: Without significant scoliosis, kyphosis or lordosis. The patient has noted some improvement in her foot pain. There was an episode where she took a picture of her foot with some swelling noted. IMPRESSION: 1. Chronic pain involving the right arm with some pain radiating down to the fingers with tingling on the right side -- cervical radicular pain. 2. Chronic foot pain improved with use of Gralise. 3. Recent onset of forearm discomfort, cramping sensation, numbness in the fingers, right elbow tendinitis. 4. Fatigue. 5. Hypothyroidism. 6. Hyperlipidemia. 7. Vitamin D and vitamin ____. RECOMMENDATION: We will renew the patient's Medrol Dosepak. She found that this medication was helpful, a renewal of her Ultram medication has been undertaken as well. She will continue with amitriptyline 1 tablet 10 mg at bedtime, diclofenac gel applied to the arm/elbow for tendinitis, she will call us. She will return in the near future. We would like to thank you for letting us participate in her care. We hope she continues to improve. By: [id number]. En Marie MD /DAVID
== END ==
LOC: M.PC 12:20
DX: G89.29 Other chronic pain (principal); R53.83 Other fatigue; E03.9 Hypothyroidism, unspecified; E78.5 Hyperlipidemia, unspecified; E55.9 Vitamin D deficiency, unspecified; R20.2 Paresthesia of skin; M79.673 Pain in unspecified foot

== ENCOUNTER → 2018-06-23 | Outpatient (CLI) | payer MEDICARE, OTHER ==
--- NOTE | ~2018-06-23 | PAINCON ---
[address] [address] PAIN MANAGEMENT CONSULTATION Name: ZION GALLEGOS Room: [facility].#: [id number] Admission: 06/23/18 Attend Phys: Afua Marie MD Discharge: Date of : 51 Report #: [id number] THIS REPORT FOR: //name// CC: Zion Marie DATE OF SERVICE: 06/23/2018 CHIEF COMPLAINT: Here for medication renewal. HISTORY: The patient is a 63-year-old female who has been followed in the pain clinic because of chronic pain involving her neck, arm, feet, and back. These have been problematic for years. Her current medication regimen is helpful. She rates her pain as a 3 today. She is getting over a respiratory virus. This has been problematic over the last few months. Oftentimes, she wakes up at night because of this. Also, her reason for waking is snoring of her spouse. Feels that her medications are helpful and help control her pain. Feels that the tramadol, amitriptyline, gabapentin, and Cymbalta are beneficial and would like to have them renewed. Activity such as walking, sitting, standing, can increase her pain and discomfort level. She is over 50% improved with her current medical regimen. CURRENT MEDICATIONS: Extra strength Tylenol 2 tablets q. 4 hours p.r.n., Cymbalta 30 mg, gabapentin/Gralise 1800 mg dosing, ibuprofen 800 mg, levothyroxine 50 mcg, tramadol 50 mg, estradiol 0.5 mg, losartan 100 mg, nortriptyline, fenofibrate for elevated cholesterol. PAIN CLINIC ASSESSMENT AND PQRS: 1. The patient has some arthritic changes in her feet. She is not being treated for rheumatoid arthritis. She has been having some pain that radiates into her right arm. 2. Height 5 feet 7 inches, weight 220 pounds, BMI is 34. 3. Vital Signs: Blood pressure 140/78, heart rate 83, respiratory rate 16, room air saturation 94%, and temperature 97.7. 4. Pain intensity 07/03. 5. Fall history: The patient has not fallen in the last 3 months. 6. Hypertension. The patient is not being treated for hypertension. 7. Opioid greater than 6 weeks. The patient received tramadol from the pain clinic. 8. Risk assessment tool, low for opioid use. 9. Recreational drug use. The patient denies use of recreational drugs. 10. Tobacco: The patient denies use of alcoholic beverages. PHYSICAL EXAMINATION: GENERAL: The patient is a well-developed, well-nourished white female. She appears her stated age. She is alert and oriented x 3[place] [address] PAIN MANAGEMENT CONSULTATION Name: ZION GALLEGOS Room: [facility]#: [id number] Admission: 06/23/18 Attend Phys: Afua Marie MD Discharge: Date of : 51 Report #: [id number] appropriate. Speech is fluent. HEENT: Normocephalic, atraumatic. Extraocular eye muscles intact. Sclerae nonicteric. Mucous membranes are moist. NECK: Without adenopathy or JVD. MUSCULOSKELETAL: The patient has some discomfort in her right shoulder with pain down into the forearm. She has some numbness in her fingers. 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 As is without significant scoliosis, kyphosis, or lordosis. The patient has noted some improvement in her foot pain in association with use of the gabapentin medication. She has had some swelling in her foot. IMPRESSION: 1. Chronic pain involving the right arm and some pain radiating down into the fingers with tingling in the right side. History of cervical radicular pain. 2. Chronic foot pain improved with use of Gralise/____. 3. Recent onset of forearm discomfort, cramping sensation, numbness of fingers, and elbows with tinnitus. 4. Fatigue. 5. Hypothyroidism. 6. Hyperlipidemia. 7. Vitamin D use. RECOMMENDATIONS: We discussed treatment options with the patient. At this juncture, we will continue with her current medications. A script for her medications of tramadol, amitriptyline, gabapentin, and Cymbalta will be continued. She will call us if she has any concerns with her medications. A script for tramadol 50 mg, Cymbalta 30 mg 1 p.o. daily, Gralise 240 mg daily, amitriptyline 20 mg at bedtime, and Voltaren gel to the upper extremity q.i.d. The patient has been given an additional Medrol Dosepak to take should her pain escalate for her next visit. We discussed ____ problems with chronic use of steroids over long periods of time. We would like to thank you for letting us participate in her care. We hope she continues to improve. By: [id number]. En Marie MD /trevor
== END ==
LOC: M.PC 05:04
DX: G89.29 Other chronic pain (principal); M79.601 Pain in right arm; M79.671 Pain in right foot; M54.12 Radiculopathy, cervical region; E55.9 Vitamin D deficiency, unspecified; R53.83 Other fatigue; E03.9 Hypothyroidism, unspecified; E78.5 Hyperlipidemia, unspecified; Z79.899 Other long term (current) drug therapy

== ENCOUNTER → 2018-07-21 | Outpatient (CLI) | payer MEDICARE, OTHER | LOC: M.ULTRA 10:29 | DX: N28.9 Disorder of kidney and ureter, unspecified (principal); Z90.49 Acquired absence of other specified parts of digestive tract ==

== ENCOUNTER → 2018-09-15 | Outpatient (CLI) | payer MEDICARE, OTHER ==
[~2018-09-15] MED LIST changes: +AMITRIPTYLINE H25 M2 PO; +HYDROCHLOROTH12.5 M1 PO; +NORVASC2.5 MG PO
--- NOTE | ~2018-09-15 | PAINCON ---
[address] [address] PAIN MANAGEMENT CONSULTATION Name: ZION GALLEGOS Room: [facility].#: [id number] Admission: 09/15/18 Attend Phys: Afua Marie MD Discharge: Date of : 51 Report #: [id number] THIS REPORT FOR: //name// CC: Zion Marie DATE OF SERVICE: 09/15/2018 CHIEF COMPLAINT: "Things are getting a bit better. I am seeing a tie inspector. I might have sarcoidosis." HISTORY: The patient is a 63-year-old female who has been followed in the pain clinic because of chronic pain involving her legs and feet. She has pain in her neck, arms, back as well. She has had pain for a number of years. She feels that her current medication is helpful. States that she has seen a tie inspector and has undergone a number of tests. The possibility of sarcoidosis might be indicated by her testing. She rates her pain as a 3/5 at this juncture. Had some problem with her blood pressure. Her blood pressure medications have been changed. They has noted some increased swelling in her ankles. She keeps her legs elevated at this point. She feels that the elevation helps decrease the swelling. She also feels that the elevation may well be helping with her pain and discomfort. She is having less of it now. Continues to have some back pain and leg pain because she is quite active. She likes to go to games by her grandchildren, they play ball. Had one grandchild who recently fractured his leg. She is out of the cast at this juncture. Overall, she feels that the amitriptyline, gabapentin and Cymbalta are working reasonably well and would like to continue them. She has returned today for renewal of her medications. MEDICATIONS: Extra strength Tylenol 2 tablets q. 4 hours p.r.n., Cymbalta 30 mg, Gralise 1800 mg dosing, ibuprofen 800 mg, levothyroxine 50 mcg, tramadol 50 mg, estradiol 0.5 mg, losartan, vitamin D, amitriptyline 20 mg nightly, fenofibrate for elevated cholesterol. PAIN CLINIC ASSESSMENT/PQRS: 1. The patient has some arthritic changes in her feet. She has not been treated for rheumatoid arthritis. She has seen a new tie inspector and is being evaluated. Possibility of sarcoidosis exist. Has some pain and discomfort in her right arm. Height 5 feet 7 inches, weight 218 pounds, BMI is 34. 2. Vital Signs: Blood pressure 156/82, heart rate 73, respiratory rate 16, room air saturation 96%, and temperature 98.1. 3. Pain intensity 10. 4. Fall history: The patient has not fallen in the last 3 months. 5. Blood thinner. The patient is not on a blood thinning medication. 6. Hypertension. The patient [place] [address] PAIN MANAGEMENT CONSULTATION Name: ZION GALLEGOS Room: [facility]#: [id number] Admission: 09/15/18 Attend Phys: Afua Marie MD Discharge: Date of : 51 Report #: [id number] 7. Risk assessment tool, low for opioid use. 8. Recreational opioid use. The patient receives her medication from one source, the pain clinic. 9. Functional assessment tool. 10. Recreational drug use. The patient denies use of recreational drugs. 11. Tobacco: The patient denies use of tobacco. 12. Alcohol: The patient denies use of alcoholic beverages. PHYSICAL EXAMINATION: GENERAL: The patient is well-developed, well-nourished white female. Appears her stated age. She is alert and oriented x 3. Affect is appropriate. Speech is fluent. HEENT: Normocephalic, atraumatic. Extraocular eye muscles intact. Sclerae nonicteric. Mucous membranes are moist. NECK: Without adenopathy or JVD. HEART: Regular rate. ABDOMEN: Nontender. MUSCULOSKELETAL: The patient with some discomfort in the shoulder area. Has some pain and discomfort in the low back area. The patient has noted some swelling in her lower extremity, less swelling when her feet are elevated. IMPRESSION: 1. Chronic pain involving the right arm. Has pain sometimes radiates down into her fingers involving the right side. 2. History of cervical radicular pain. 3. Chronic foot pain improved with use of Gralise. 4. Recent onset and improvement in forearm pain. 5. Fatigue. 6. Hypothyroidism. 7. Hyperlipidemia. 8. Vitamin D use. RECOMMENDATIONS: We discussed treatment options with the patient. At this juncture, she feels that her medications are helpful. Feels that the Elavil medication is helpful at night as well as in the day to help with her pain. She is having no complications from its use. Feels that the dose of 20 mg nightly is working reasonably well. She is not having any hangover symptomatology. We will continue with her medication. A script for Elavil 25 mg at bedtime will be written. She should be able to tolerate this reasonably well and increase it only 5 mg. I think it is easier to take one tablet rather than the two 10 mg tablets. We will provide her with a 3-month supply. The patient will also continue with Cymbalta 30 mg 1 p.o. daily and Gralise 600 mg 4 tablets daily. We would like to thank you for letting us participate in [place] [address] PAIN MANAGEMENT CONSULTATION Name: ZION GALLEGOS Room: [facility]#: [id number] Admission: 09/15/18 Attend Phys: Afua Marie MD Discharge: Date of : 51 Report #: [id number] call us if she has any concerns. Hopefully, her grandchildren continue to do well in their ventures. She will call us if she has any concerns. By: [id number]. En Marie MD /nt
== END ==
LOC: M.PC 02:26
DX: G89.29 Other chronic pain (principal); I10 Essential (primary) hypertension; M79.601 Pain in right arm; E03.9 Hypothyroidism, unspecified; Z79.899 Other long term (current) drug therapy; Z79.891 Long term (current) use of opiate analgesic

== ENCOUNTER → 2018-10-10 | Outpatient (CLI) | payer MEDICARE, OTHER ==
--- NOTE | 2018-10-10 16:32 | 2DMMODE ---
[place] [address] 2 D/M-MODE ECHOCARDIOGRAM Name: ZION GALLEGOS Room: [facility]#: [id number] Admission: 10/10/18 Attend Phys: Wilda Joaquin Discharge: Date of : 51 Date of Service: 10/10/18 1631 Report #: [id number] THIS REPORT FOR: //name// APPROVED REPORT Study performed: 10/10/2018 13:54:11 EXAM: Comprehensive 2D, Doppler, and color-flow Echocardiogram Patient Location: Out-Patient BSA: 2.12 HR: 75 bpm Other Information Study Quality: Good Indications Chest Pain 2D Dimensions IVSd: 11.35 (7-11mm) LVOT Diam: 20.81 (18-24mm) LVDd: 45.61 mm PWd: 7.16 (7-11mm) Ascending Ao: 30.69 (22-36mm) LVDs: 24.43 (25-40mm) Aortic Root: 27.93 mm Volumes Left Atrial Volume (Systole) LA ESV Index: 16.50 mL/m2 Aortic Valve AoV Peak Brendan.: 1.31 m/s AO Peak Gr.: 6.84 mmHg LVOT Max P.60 mmHg AO Mean Gr.: 3.91 mmHg LVOT Mean P.89 mmHg LVOT Max V: 1.28 m/s AO V2 VTI: 26.41 cm LVOT Mean V: 0.76 m/s SARI (VTI): 3.30 cm2 LVOT V1 VTI: 25.61 cm Mitral Valve E/A Ratio: 1.01 MV Decel. Time: 184.40 ms MV E Max Brendan.: 0.67 m/s MV PHT: 53.48 ms MVA (PHT): 4.11 [place] [address] 2 D/M-MODE ECHOCARDIOGRAM Name: ZION GALLEGOS Room: [facility]#: [id number] Admission: 10/10/18 Attend Phys: Wilda Joaquin Discharge: Date of : 51 Date of Service: 10/10/18 1631 Report #: [id number] TDI E/Lateral E': 6.70 E/Medial E': 4.79 Medial E' Brendan.: 0.14 m/s Lateral E' Brendan.: 0.10 m/s Pulmonary Valve PV Peak Brendan.: 0.88 m/s PV Peak Gr.: 3.10 mmHg Tricuspid Valve RAP Estimate: 5.00 mmHg TR Peak Gr.: 26.86 mmHg RVSP: 31.86 mmHg PA Pressure: 31.86 mmHg Left Ventricle The left ventricle is normal size. There is normal LV segmental wall motion. There is normal left ventricular wall thickness. Left ventricular systolic function is normal. The left ventricular ejection fraction is within the normal range. LVEF is 60-65%. Grade I - abnormal relaxation pattern. Right Ventricle The right ventricle is normal size. The right ventricular systolic function is normal. Atria The left atrium size is normal. The right atrium size is normal. Aortic Valve The aortic valve is normal in structure. No aortic regurgitation is present. There is no aortic valvular stenosis. Mitral Valve The mitral valve is normal in structure. Trace mitral regurgitation. No evidence of mitral valve stenosis. Tricuspid Valve The tricuspid valve is normal in structure. Mild tricuspid regurgitation. estimated pa pressure 35 mm Hg Pulmonic Valve Pulmonic valve is not well visualized. There is no pulmonic valvular [place] [address] 2 D/M-MODE ECHOCARDIOGRAM Name: GALLEGOSZION Perez Room: [facility]#: [id number] Admission: 10/10/18 Attend Phys: Wilda Joaquin Discharge: Date of : 51 Date of Service: 10/10/18 1631 Report #: [id number] The aortic root is normal in size. IVC is normal in size and collapses >50% with inspiration. Pericardium There is no pericardial effusion. <Conclusion> Left ventricular systolic function is normal. The left ventricular ejection fraction is within the normal range. <ELECTRONICALLY SIGNED> By: Neptali Bonilla MD, [facility] 10/10/18 [phone] Neptali Bonilla MD, FAC /INF
== END ==
LOC: M.CRD 13:37
DX: I07.1 Rheumatic tricuspid insufficiency (principal); Z88.8 Allergy status to other drugs, medicaments and biological substances

== ENCOUNTER → 2018-12-08 | Outpatient (CLI) | payer MEDICARE, OTHER ==
[~2018-12-08] MED LIST changes: +CARVEDILOL3.125 MG PO; +CYMBALTA60 MG PO; +FENOFIBRATE134 MG PO; +NEURONTIN600 MG PO; +PROTONIX40 M1 PO
--- NOTE | ~2018-12-08 | PAINCON ---
[address] [address] PAIN MANAGEMENT CONSULTATION Name: ZION GALLEGOS Room: [facility].#: [id number] Admission: 12/08/18 Attend Phys: Afua Marie MD Discharge: Date of : 51 Report #: [id number] THIS REPORT FOR: //name// CC: Zion Marie DATE OF SERVICE: 12/08/2018 CHIEF COMPLAINT: "Things are going pretty well." HISTORY: The patient is a 63-year-old female who has been followed in the pain clinic because of chronic pain. She has pain down in her feet. Her current medical regimen has been effective in helping decrease her discomfort. She feels that tramadol in conjunction with gabapentin/Gralise has been beneficial. She is taking Cymbalta. She is taking a total of 60 mg daily. She has been using this for about 5 months. She is having some pain and discomfort in her right elbow. The pain is better at this point. Also, she has some pain in her left shoulder, which has been problematic. She has been followed by band manager. She has returned today for renewal of her medications. She has been experiencing some swelling in her legs. She states that her doctors provide her with another medication to help decrease the discomfort. She likes to visit her grandchildren. They have now moved from their current place, which was about 3 hours away to one at the more distant, which is about 5 hours away. There is somewhat disconcerting, but her son-in-law has gotten a better promotion. She feels overall that things are about 60-65% improved with her medications. She would like to continue them. MEDICATIONS: Extra Strength Tylenol 2 tablets every 4 hours p.r.n., Cymbalta 30 mg, total of 60 mg a day, Gralise 1800 mg, ibuprofen 800 mg, levothyroxine 50 mcg, tramadol 50 mg, estradiol 50 mg, losartan, vitamin D, amitriptyline 25 mg at bedtime, fenofibrate for elevated cholesterol. PAIN CLINIC ASSESSMENT/PQRS. 1. The patient has some arthritic changes in her feet. She is being treated by band manager. 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 2. Height 5 feet 7 inches, weight 218 pounds, BMI is 33. 3. Vital Signs: Blood pressure 123/81, heart rate 84, respiratory rate 16, room air saturation 93%, and temperature 98.1. 4. Pain intensity 3-4/10. 5. Fall history: The patient has not fallen in the last 3 months. 6. Blood thinner. The patient is not on a blood thinning medication. 7. Hypertension. The patient is being treated for hypertension. 8. Opioids greater than 3 weeks. The patient receives medications through the pain clinic and is taking as prescribed. 9. Functional assessment tool, low for opioid use. 10. Recreational drug use: [place] [address] PAIN MANAGEMENT CONSULTATION Name: GALLEGOSZION Chris [facility] [id number] Admission: 12/08/18 Attend Phys: Afua Marie MD Discharge: Date of : 51 Report #: [id number] 11. Tobacco: The patient denies use of tobacco. 12. Alcohol. The patient denies use of alcohol. PHYSICAL EXAMINATION: GENERAL: The patient is a well-developed, well-nourished white female. Appears her stated age. She is alert and oriented x 3. Her affect is appropriate. Speech is fluent. HEENT: Normocephalic, atraumatic. Extraocular eye muscles intact. Sclerae nonicteric. Mucous membranes are moist. NECK: Without adenopathy or JVD. HEART: Regular rate. ABDOMEN: Nontender. Bowel sounds present. MUSCULOSKELETAL: Without significant scoliosis, kyphosis or lordosis. The patient has noted some improvement in the swelling in her lower extremities. IMPRESSION: 1. Chronic pain involving the right arm. The patient has noticed an improvement in the right arm pain, the elbow is less problematic. 2. History of cervical radiculopathy. 3. Chronic foot pain improved with use of Gralise. 4. Fatigue. 5. Hypothyroidism. 6. Hyperlipidemia. 7. Vitamin D. RECOMMENDATIONS: We discussed treatment options with the patient. At this juncture, we will continue with her medications. She feels that they are working reasonably well. We will continue with the Gralise 1800 mg with a total of 2400 mg daily. She will also continue with amitriptyline 25 mg at bedtime. We have discussed the possibility of increasing the amitriptyline. The patient does feel that the change in the photo. It is beginning to take a toll on her. She is using Cymbalta. She may consult her primary regarding whether or not an increase in the Cymbalta might be beneficial in decreasing her depression secondary to the photo change in the photo. Use of amitriptyline may cause her to be a little bit more sleepy without elevating that feeling of depression. She will also continue with tramadol. She will take it as prescribed. She is having no problems with these medications. Overall, things are going relatively well. A script for the medications have been written. The patient will take Cymbalta 60 mg tablet 1 tablet daily as opposed to two 30 mg tablets. We would like to thank you for letting us participate in her care. We hope she continues to improve. By: [id number]. En Marie MD /nt
== END ==
LOC: M.PC 04:48
DX: M54.12 Radiculopathy, cervical region (principal); M79.673 Pain in unspecified foot; M79.601 Pain in right arm; E03.9 Hypothyroidism, unspecified; E78.5 Hyperlipidemia, unspecified; R53.83 Other fatigue

== ENCOUNTER → 2019-03-02 | Outpatient (CLI) | payer MEDICARE, OTHER ==
[~2019-03-02] MED LIST changes: +AMITRIPTYLINE H25 M3 PO; +GABAPENTIN800 M1 PO
--- NOTE | 2019-03-07 10:01 | PAINCON ---
[address] [address] PAIN MANAGEMENT CONSULTATION Name: ELZION S Room: [facility].#: [id number] Admission: 03/02/19 Attend Phys: Afua Marie MD Discharge: Date of : 51 Report #: [id number] THIS REPORT FOR: //name// CC: ZION MCBRIDE DO Zion Marie DATE OF SERVICE: 03/02/2019 CHIEF COMPLAINT: Chronic pain in the feet. HISTORY: The patient is a 63-year-old female who has been followed in the pain clinic because of chronic pain involving her feet and back. She also has some pain and discomfort involving her right shoulder and the elbow is painful. She is here for medication renewal. Overall, things are going reasonably well. She rates her pain as a 2/10. Feels that the tramadol, gabapentin, amitriptyline, and Cymbalta are helpful. They provide about 60-65% of pain relief. Still has some discomfort because of the change in weather. Walking, sitting, standing, climbing stairs. MEDICATIONS: Extra strength Tylenol 2 tablets every 4 hours p.r.n., Cymbalta 30 mg and total of 60 mg daily, Gralise 1800 mg, ibuprofen 800 mg, levothyroxine 50 mcg, tramadol 50 mg, losartan, vitamin D, amitriptyline 25 mg at bedtime, fenofibrate, PAIN CLINIC ASSESSMENT/PQRS: 1. The patient has some arthritic changes in her feet. She is also being treated by brush maker machine. She states that she has some autoimmune reactions, which continues to be ongoing. 2. Height 5 feet 7 inches, weight 218 pounds, BMI is 34.7. 3. Vital signs: Blood pressure 127/76, heart rate 72, respiratory rate is 16, room air saturation 94%, and temperature 97.7. 4. Pain intensity /10. 5. Fall history: The patient has not fallen in the last 3 months. 6. Blood thinner. The patient is not on a blood thinning medication. 7. Hypertension. The patient is not being treated for hypertension. 8. Opioid. The patient receives opioid medications from one source, pain clinic of tramadol. 9. Functional assessment tool, low for opioid use. 10. Recreational drug use: The patient denies. 11. Tobacco: The patient denies use of tobacco. 12. Alcohol: The patient denies use of alcoholic beverages. PHYSICAL EXAMINATION: GENERAL: The patient is a well-developed, well-nourished white female. Appears her stated age. She is alert and oriented x 3. [place] [address] PAIN MANAGEMENT CONSULTATION Name: GALLEGOSZION Room: [facility]#: [id number] Admission: 03/02/19 Attend Phys: Afua Marie MD Discharge: Date of : 51 Report #: [id number] Speech is fluent. HEENT: Normocephalic, atraumatic. Extraocular eye muscles intact. Sclerae nonicteric. Mucous membranes are moist. NECK: Without adenopathy or JVD. HEART: Regular rate. ABDOMEN: Nontender. Bowel sounds present. MUSCULOSKELETAL: Without significant scoliosis, kyphosis or lordosis. The patient has some swelling in her lower extremities. IMPRESSION: 1. Chronic pain involving the right arm and feet. 2. History of cervical radiculopathy. 3. Chronic foot pain improved with use of Gralise. 4. Fatigue. 5. Hypothyroidism. 6. Hyperlipidemia. 7. Vitamin D. RECOMMENDATIONS: We discussed treatment options with the patient. At this juncture, we will continue with her medications. She finds that her medications at this point continue to be helpful. Feels that the Gralise is working reasonably well. She will continue with the Gralise at 2400 mg. She will also continue with amitriptyline 25 mg at bedtime. She will continue with the Cymbalta. She feels that the medications are working reasonably well. Overall, things are going reasonably well and will continue with her current medical regimen for the next few months. She has used a Medrol Dosepak in the past and found that this was helpful with shoulder pain. This also seems to be helpful with the right forearm discomfort in the past. She will call us if she has any concerns. Thank you very much for proofread my dictation. <ELECTRONICALLY SIGNED> By: Afua Marie MD 03/07/19 1001 [id number]. En Marie MD /nt
== END ==
LOC: M.PC 05:33
DX: G89.29 Other chronic pain (principal); M54.12 Radiculopathy, cervical region; E03.9 Hypothyroidism, unspecified; E78.5 Hyperlipidemia, unspecified; Z79.899 Other long term (current) drug therapy

== ENCOUNTER → 2019-05-25 | Outpatient (CLI) | payer MEDICARE, OTHER ==
--- NOTE | 2019-06-09 08:24 | PAINCON ---
[address] [address] PAIN MANAGEMENT CONSULTATION Name: ZION GALLEGOS Room: [facility]#: [id number] Admission: 05/25/19 Attend Phys: Afua Marie MD Discharge: Date of : 51 Report #: [id number] THIS REPORT FOR: //name// cc: Zion Yeung Linda J. DO THIS REPORT FOR: //name// CC: Zino Hsu The patient was seen on 05/25/2019 by En Marie MD CHIEF COMPLAINT: Bilateral foot pain and back pain. HISTORY: The patient is a 64-year-old female who has been followed in the pain clinic because of chronic pain. She has chronic pain involving her feet as well as in her back. She rates her pain today as 6/10. She has noted increased pain in her hands, feet and mouth. She did have foot and mouth disease in March. This caused her increased amount of pain and discomfort. Otherwise, her symptoms remain stable. Her grandson also had hand, foot and mouth disease. She feels that she did have symptoms of intestinal flu. She was dehydrated as a result of that illness. She rates her pain as a 6-6.5 today. She has a significant amount of generalized soreness. ALLERGIES: No known drug allergies. CURRENT MEDICATIONS: Tylenol Extra Strength 2 tablets p.r.n., amitriptyline 25 mg at bedtime, Coreg 3.125 mg b.i.d., Cymbalta 60 mg, fenofibrate 134 mg, gabapentin 800 mg t.i.d., hydrochlorothiazide 12.5 mg, ibuprofen 800 mg q.6 hours, levothyroxine 50 mcg, Protonix 40 mg, tramadol 50 mg 2 tablets q.4 hours p.r.n., rvvh-[id number] diuretic, estradiol 0.25 mg, vitamin D 4000, 6000 units daily. PAIN CLINIC ASSESSMENT/PQRS: 1. The patient has some arthritic changes in her feet. She is being treated by school of nursing director. She states that she has an autoimmune reaction ongoing. 2. Height 5 feet 7 inches, weight 220 pounds, BMI is 33.6. 3. Vital signs: Blood pressure 120/77, heart rate 72, respiratory rate 16, room air saturation is 96%, temperature 98.0. 4. Pain intensity is 6/10. 5. Fall history: The patient has not fallen in the last 3 months. 6. Blood thinner. The patient is not on a blood thinning medication. 7. Hypertension. The patient is not being treated for hypertension. 8. Opioids greater than 6 weeks. The patient received medication from one source, the pain clinic. 9. Functional assessment tool, [place] [address] PAIN MANAGEMENT CONSULTATION Name: ZION GALLEGOS Room: [facility]#: [id number] Admission: 05/25/19 Attend Phys: Afua Marie MD Discharge: Date of : 51 Report #: [id number] 10. Recreational drugs: The patient denies. 11. Tobacco: The patient denies. 12. Alcohol: The patient denies use of alcoholic beverages. PHYSICAL EXAMINATION: GENERAL: The patient is a well-developed, well-nourished white female who appears her stated age. She is alert and oriented x 3. Affect is appropriate. Speech is fluent. HEENT: Normocephalic, atraumatic. Extraocular eye muscles intact. Sclerae are nonicteric. NECK: Without adenopathy or JVD. HEART: Regular rate. ABDOMEN: Nontender. Bowel sounds present. MUSCULOSKELETAL: Without significant scoliosis, kyphosis or lordosis. The patient continues to have some pain and discomfort in her feet bilaterally. She does have some back discomfort. IMPRESSION: 1. Chronic pain involving the right arm and feet. 2. History of cervical radiculopathy. 3. Chronic foot pain improved with use of Gralise. 4. Fatigue. 5. Hypothyroidism. 6. Hyperlipidemia. 7. Vitamin D. RECOMMENDATIONS: We discussed treatment options with the patient. At this juncture, things are going reasonably well. She did have an episode of foot and mouth disease. She notes that her grandson who had similar problem. She noticed some increased burning in her feet as a result of the foot and mouth disease. She was dehydrated after getting the flu. She is now beginning to feel a bit more like herself. She has taken her medication as prescribed. She has returned today for renewal of her medications. She is aware that opioid medications can become less effective as time goes on. She has not shown any signs of addictive behavior. We will rewrite her medications. She will follow up in the near future. The patient will continue with amitriptyline 25 mg at bedtime. She will also continue with Cymbalta 60 mg 1 daily. A script for gabapentin has been renewed. She will continue with 800 mg of gabapentin 3 times daily. She will also continue with tramadol to help with pain. The patient will take 2 tabs q.i.d. She will call us if she has any concerns. [address] [id number] PAIN MANAGEMENT CONSULTATION Name: ZION GALLEGOS Room: [facility]#: [id number] Admission: 05/25/19 Attend Phys: Afua Marei MD Discharge: Date of : 51 Report #: [id number] We would like to thank you for letting us participate in her care. We hope she continues to improve. <ELECTRONICALLY SIGNED> By: Afua Marie MD 06/09/19 0824 [id number]. En Marie MD /nt
== END ==
LOC: M.PC 11:50
DX: M79.671 Pain in right foot (principal); M79.672 Pain in left foot; M79.601 Pain in right arm; G89.29 Other chronic pain; M54.9 Dorsalgia, unspecified; R53.83 Other fatigue; E03.9 Hypothyroidism, unspecified; E55.9 Vitamin D deficiency, unspecified; Z79.899 Other long term (current) drug therapy; Z87.39 Personal history of other diseases of the musculoskeletal system and connective tissue

== ENCOUNTER → 2019-12-21 | Outpatient (CLI) | payer MEDICARE, OTHER ==
[~2019-12-21] MED LIST changes: +NEURONTIN800 MG PO; +VOLTAREN GEL 1100 G1 TOP
--- NOTE | 2020-01-02 15:40 | PAINCON ---
[address] [address] PAIN MANAGEMENT CONSULTATION Name: ZION GALLEGOS Room: [facility].#: [id number] Admission: 12/21/19 Attend Phys: Afua Marie MD Discharge: Date of : 51 Report #: [id number] THIS REPORT FOR: //name// cc: Zion Yeung Linda J. DO ~ THIS REPORT FOR: //name// CC: Zion Marie DATE OF SERVICE: 12/21/2019 CHIEF COMPLAINT: Continued feet, low back, and shoulder pain. HISTORY: The patient is a 64-year-old female who has been followed in the pain clinic because of chronic pain. She suffers from chronic pain, which has been problematic for a number of years. Pain involves her feet, her low back and she has some pain and discomfort involving her shoulder. She finds her medications are helpful. They remained beneficial. It makes her discomfort manageable. She still is having pain in her shoulder. She has been diagnosed with prediabetes. She has returned today with the hopes of having her medications renewed. ALLERGIES: No known drug allergies. CURRENT MEDICATIONS: Tylenol Extra Strength 500 mg 2 tablets p.r.n., amitriptyline 25 mg at bedtime, Coreg 3.125 mg b.i.d., Cymbalta 60 mg, fenofibrate 134 mg capsules, gabapentin 800 mg t.i.d., hydrochlorothiazide 12.5 mg, ibuprofen 800 mg every 6 hours p.r.n., Synthroid 50 mcg, Protonix 40 mg, tramadol 50 mg 2 tablets 4 times daily, [id number] diuretic, vitamin D, estradiol. PAIN CLINIC ASSESSMENT AND PQRS: 1. The patient has some arthritic changes in her feet. 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 2. Height 5 feet 7 inches, weight 220 pounds, BMI is 34.6. 3. Vital Signs: Blood pressure 132/89, heart rate 72, respiratory rate 18, room air saturation 95%, temperature 97.8. 4. Pain Intensity: 4/10. 5. Fall History: The patient has not fallen in the last 3 months. 6. Blood Thinner: The patient is not on a blood thinning medication. 7. Hypertension: The patient is being treated for hypertension. 8. Opioids greater than 6 weeks: The patient receives medication from the pain clinic. 9. Recreational drug use: The patient denies. 10. Functional assessment tool: [place] [address] PAIN MANAGEMENT CONSULTATION Name: ZION GALLEGOS [facility]: [facility]#: [id number] Admission: 12/21/19 Attend Phys: Afua Marie MD Discharge: Date of : 51 Report #: [id number] 11. Tobacco: The patient denies use of tobacco. 12. Alcohol: The patient denies use of alcoholic beverages. PHYSICAL EXAMINATION: GENERAL: The patient is a well-developed, well-nourished white female. Appears her stated age. She is alert and oriented x 3. Her affect is appropriate. Speech is fluent. HEENT: Normocephalic, atraumatic. Extraocular eye muscles are intact. Sclerae nonicteric. Mucous membranes are moist. NECK: Without adenopathy or JVD. HEART: Regular rate. ABDOMEN: Nontender. Bowel sounds are present. MUSCULOSKELETAL: Without significant scoliosis, kyphosis or lordosis. The patient has pain that continues to involve her feet bilaterally. Also, has some low back discomfort. Has pain in the right shoulder. IMPRESSION: 1. Chronic pain involving the right shoulder and feet. 2. Low back pain. 3. History of cervical radiculopathy. 4. Chronic foot pain improved with the use of Gralise. 5. Fatigue. 6. Hypothyroidism. 7. Hyperlipidemia. 8. Vitamin D. 9. Prediabetes. RECOMMENDATIONS: We discussed treatment options with the patient. At this juncture, we will continue with her medications. A script for her medications have been rewritten. She will continue with pain medications, tramadol 50 mg p.o. q.i.d. She will also continue with gabapentin 800 mg 1 p.o. t.i.d. The patient will continue with Cymbalta 60 mg, she will use Voltaren gel on the affected shoulder area. She will use amitriptyline 25 mg at bedtime. We would like to thank you for letting us participate in her care. We hope she continues to improve. The patient will follow up in 6 months. <ELECTRONICALLY SIGNED> By: Afua Marie MD 01/02/20 [id number]. En Marie MD /nt
== END ==
LOC: M.PC 10:44
PROVIDERS: ATTEND Anesthesiology Pain Medicine
DX: M54.5 Low back pain (principal); M25.511 Pain in right shoulder; G89.29 Other chronic pain; R73.03 Prediabetes; E55.9 Vitamin D deficiency, unspecified; E78.5 Hyperlipidemia, unspecified; E03.9 Hypothyroidism, unspecified; R53.83 Other fatigue; M79.673 Pain in unspecified foot; F11.20 Opioid dependence, uncomplicated; Z87.39 Personal history of other diseases of the musculoskeletal system and connective tissue; Z88.8 Allergy status to other drugs, medicaments and biological substances; Z79.899 Other long term (current) drug therapy

== ENCOUNTER → 2020-05-23 | Outpatient (CLI) | payer MEDICARE, OTHER | LOC: M.PC 11:40 | PROVIDERS: ATTEND Anesthesiology Pain Medicine | DX: Z12.31 Encounter for screening mammogram for malignant neoplasm of breast (principal) ==

== ENCOUNTER → 2020-05-30 | Outpatient (CLI) | payer MEDICARE ==
[~2020-05-30] MED LIST changes: -SYNTHROID50 MCG PO; +SYNTHROID75 MCG PO
== END ==
LOC: M.ULTRA 05-24 14:00
PROVIDERS: ATTEND Specialist
DX: N63.10 Unspecified lump in the right breast, unspecified quadrant (principal)

== ENCOUNTER → 2020-10-02 | Outpatient (CLI) | payer MEDICARE, OTHER ==
[~2020-10-02] MED LIST changes: +AMITRIPTYLINE H50 M2 PO
== END ==
LOC: M.CT 13:07
PROVIDERS: ATTEND Family Medicine
DX: R06.02 Shortness of breath (principal); R53.83 Other fatigue; R91.8 Other nonspecific abnormal finding of lung field; Z86.16 Personal history of COVID-19; E78.2 Mixed hyperlipidemia; I10 Essential (primary) hypertension; E03.9 Hypothyroidism, unspecified; R50.9 Fever, unspecified; E55.9 Vitamin D deficiency, unspecified

== ENCOUNTER → 2020-11-14 | Outpatient (CLI) | payer MEDICARE, OTHER ==
[~2020-11-14] MED LIST changes: +VOLTAREN ARTHRI20 GM TOP
== END ==
LOC: M.PC 11:52
PROVIDERS: ATTEND Anesthesiology Pain Medicine
DX: G89.29 Other chronic pain (principal); M25.511 Pain in right shoulder; M79.671 Pain in right foot; M54.5 Low back pain; M54.12 Radiculopathy, cervical region; R53.83 Other fatigue; E03.9 Hypothyroidism, unspecified; E78.5 Hyperlipidemia, unspecified; R73.03 Prediabetes; Z86.16 Personal history of COVID-19

== ENCOUNTER → 2021-03-25 | Outpatient (CLI) | payer MEDICARE, OTHER ==
[~2021-03-25] MED LIST changes: -CARVEDILOL3.125 MG PO; +COREG6.25 MG PO
== END | disposition home or self-care (01) ==
LOC: M.PC 11:40
PROVIDERS: ATTEND Anesthesiology Pain Medicine
DX: M25.511 Pain in right shoulder (principal); M25.571 Pain in right ankle and joints of right foot; G89.29 Other chronic pain; M54.12 Radiculopathy, cervical region; R53.83 Other fatigue; E03.9 Hypothyroidism, unspecified; E78.5 Hyperlipidemia, unspecified; E55.9 Vitamin D deficiency, unspecified; R73.03 Prediabetes; Z86.16 Personal history of COVID-19

== ENCOUNTER → 2021-06-17 | Outpatient (CLI) | payer MEDICARE, OTHER | LOC: M.PC 12:13 | PROVIDERS: ATTEND Anesthesiology Pain Medicine | DX: G89.29 Other chronic pain (principal); M25.511 Pain in right shoulder; M54.50 Low back pain, unspecified; M54.12 Radiculopathy, cervical region; R53.83 Other fatigue; E03.9 Hypothyroidism, unspecified; E78.5 Hyperlipidemia, unspecified; R73.03 Prediabetes; Z79.899 Other long term (current) drug therapy ==